=== PATIENT | female | born 1975 | race Hispanic/Latino ===

== ENCOUNTER 2024-11-07 00:04 | Emergency (ER) | payer SELFPAY ==
[2024-11-07 00:10] VITALS: BP 144/92
--- NOTE | 2024-11-07 00:34 | ED.GENMED ---
History of Present Illness
General
Chief Complaint: Allergic Reaction
Source: patient
Exam Limitations: none
Time Seen by Provider: 11/07/24 00:24
Nursing documentation reviewed up to this point in time: agreed with
History of Present Illness
History of Present Illness:
49-year-old female presents with an allergic reaction. Patient had an injection of B vitamins and had an allergic reaction. Patient had an allergic reaction the last 2 times she had this medicine. This time she had an injection instead of taking
the medicine orally. She thought that the route of administration might have changed the allergic nature of the supplement. She reports having a pruritic urticaria. She denies any swallowing or breathing difficulty. She did not take anything at
home. She has no known allergies with the exception of the vitamins B and C supplement that she just took.
Review of Systems
Review of Systems
Allergies reviewed?: Yes
All Other Systems: ROS reviewed and negative except as documented in HPI and ROS
Constitutional: Reports no symptoms
EENT: Reports no symptoms
Respiratory: Reports no symptoms
Cardiac: Reports no symptoms
ABD/GI: Reports no symptoms
: Reports no symptoms
Musculoskeletal: Reports no symptoms
Skin: Reports itching and rash
Neurological: Reports no symptoms
Endocrine: Reports no symptoms
Hematologic/Lymphatic: Reports no symptoms
Psychiatric: Reports anxiety
Phy Exam
General Physical Exam
General Presentation: well appearing and no apparent distress
General Skin: warm and dry
General Habitus: normal
General Mental: alert
General Hydration: appears well hydrated
ENT Exam
ENT Exam: EOMI, pharynx normal, neck supple and normocephalic
Eye Exam
Eye Exam: PERRL, cornea clear and conjunctiva normal
Cardiovascular Exam
Cardiovascular Exam: regular rate/rhythm, no edema, no murmur and normal peripheral pulses
Pulmonary Exam
Pulmonary Exam: lungs clear, no respiratory distress, no rales, no crackles, no rhonchi, no stridor, no wheezing and no cough
Gastrointestinal Exam
Gastrointestinal Exam: normal bowel sounds, non tender, soft, no organomegaly, no pulsatile mass and non distended
Neurological Exam
Neurological Exam: alert, oriented x3, no motor deficits and speech normal
Musculoskeletal Exam
Musculoskeletal Exam: full ROM and no edema
Skin Exam
Skin Exam: warm/dry, no petechia, erythema and redness
Psychiatric Exam
Psychiatric Exam: normal mood/affect
Course
Orders/Labs/Results
Orders:
Orders
11/07/24 00:33
Dexamethasone Pf [Decadron] 10 mg PO NOW STA
Diphenhydramine [Benadryl] 25 mg PO NOW STA
Famotidine [Pepcid] 20 mg PO NOW STA
Vital Signs
Initial and Last Documented VS:
Initial Vital Signs
Temp Pulse Resp BP Pulse Ox
97.4 F 110 22 144/92 96
11/07/24 00:10 11/07/24 00:10 11/07/24 00:10 11/07/24 00:10 11/07/24 00:10
Last Documented Vital Signs
Temp Pulse Resp BP Pulse Ox
97.4 F 110 22 117/78 96
11/07/24 00:10 11/07/24 00:10 11/07/24 00:10 11/07/24 01:00 11/07/24 01:15
*Critical Care Note
Total Time (30-74mins, 75-104mins- exclusive of procedures): Not Applicable
ED Attending Note
-
Portions of this chart may have been created with voice recognition software.� Occasional wrong word or��sound alike� substitutions may have occurred due to the inherent limitations of voice recognition software.
Discharge Plan
Departure
Patient Disposition: Home (Routine Discharge)
Date of Disposition: 11/07/24
Time of Disposition: 02:04
Patient with high blood pressure during this ER visit?: No
Condition: Good
Discharge Problem:
Allergic reaction
Instructions: Hives (DC), Adverse Drug Reactions, Adult (DC), Allergic reaction - ED discharge instructions
Prescriptions:
New
diphenhydramine HCl [Benadryl] 25 mg capsule
25 mg PO TID PRN (Reason: allergy symptoms) Qty: 14 0RF
prednisone 50 mg Tablet
50 mg PO DAILY Qty: 5 0RF
epinephrine [EpiPen] 0.3 mg/0.3 mL Auto-Injector
0.3 mg IM .STAT PRN (Reason: anaphylaxis) Qty: 1 0RF
famotidine [Pepcid] 40 mg tablet
40 mg PO DAILY Qty: 20 0RF
Referrals:
Jessica Santa MD [Active] -
NONE,* [Family Provider] -
Activity Restrictions/Additional Instructions:
It was a pleasure meeting you and taking part in your care. We hope for your continued healing and wellness.
Please read discharge instructions in their entirety. However, they are for general education and may not describe your exact diagnosis at discharge. Information on your ER visit and medical conditions were discussed with you along with appropriate
follow up information...
If indicated, please take your medications as instructed and indicated on discharge paperwork.
Please schedule a follow up appointment as directed. Call to schedule an appointment
Please return to the emergency department with ANY change in, persisting, or worsening of symptoms. If any of your symptoms do not improve, or persist, or become more severe within 6-12 hours, please return to the emergency department for further
care.
Please return to the emergency department if you develop a headache, neck pain/stiffness, fever greater than 100.4F, chest pain, shortness of breath, persistent nausea, vomiting, slurred speech, difficulty walking, numbness/tingling, weakness, signs
of infection or any other symptoms that are worrisome to you.
If you have any questions or concerns please do not hesitate to call the Hospital at or E-mail me directly at [email or web address]
Interventions
Interventions:
*Risk Screen - Suicide Last Done: 11/07/24 00:10
*Neglect/Abuse Screening Last Done: 11/07/24 00:10
ED- Cardiac Assessment Last Done: 11/07/24 00:37
ED-EENT Assessment Last Done: 11/07/24 00:37
ED- Pulmonary Assessment Last Done: 11/07/24 00:37
ED-Skin Assessment Last Done: 11/07/24 00:37
Discharge Date and Time
Print Language: BRITISH
[2024-11-07 00:37] VITALS: BMI 27.4
[2024-11-07] MEDS: PEPCID 20 MG PO (00:39)
[2024-11-07] MEDS: DECADRON 10 MG PO (00:40)
[2024-11-07] MEDS: BENADRYL 25 MG PO (00:40)
[2024-11-07 00:42] VITALS: BP 122/84
[2024-11-07 01:00] VITALS: BP 117/78
[2024-11-07 02:00] VITALS: BP 109/71
== END 2024-11-07 02:21 | disposition home or self-care (01) ==
LOC: EMR 00:04
PROVIDERS: EMERGENCY PHYSICIAN Student in an Organized Health Care Education/Training Program
DX: T78.40XA Allergy, unspecified, initial encounter (principal); X58.XXXA Exposure to other specified factors, initial encounter; L50.9 Urticaria, unspecified; Z88.8 Allergy status to other drugs, medicaments and biological substances
CPT/HCPCS: 99283